=== PATIENT | male | born 1985 | race Caucasian/White ===

== ENCOUNTER 2016-02-24 10:38 | Inpatient (IN) | payer OTHER ==
[~2016-02-24] VITALS: Ht 170.2 cm; Wt 60.0 kg
[~2016-02-24 10:38] MED LIST: MEDROL4 MG PO; VALIUM2 MG PO
[2016-02-24 13:21] LABS: HEMATOCRIT 45.5 % (38.0-50.0); MCH 32.3 PG (29.0-34.0); MCHC 35.2 G/DL (30.0-36.0); MCV 91.9 FL (86-99); MEAN PLAT.VOLUME 9.5 uM^3 (9.0-12.4); PLATELET COUNT 483 K/uL (156-360); RBC DIS.WIDTH-CV 12.2 % (11.8-14.6); RBC DIS.WIDTH-SD 40.3 % (39-53); RED BLOOD COUNT 4.95 M/uL (4.00-5.50); WHITE BLOOD COUNT 29.7 K/uL (4.1-10.2)
[2016-02-24 13:24] LABS: CHLORIDE 101 mEq/L (99-109); POTASSIUM 3.3 mEq/L (3.7-5.4); SODIUM 138 mEq/L (136-147)
[2016-02-24 13:26] LABS: GLUCOSE 92 mg/dL (70-99)
[2016-02-24 13:29] LABS: ANION GAP 16 MEQ/L (2-14); SERUM ETHYL ALCOHOL < 10 mg/dL; TOTAL BILIRUBIN 0.3 mg/dL (0.0-1.0)
[2016-02-24 13:30] LABS: ALKALINE PHOSPHATASE 86 IU/L (3-129); GFR ESTIMATE (CALCULATED) > 59 mL/min/
[2016-02-24 13:30] LABS: ADD MIUA? YES; BILIRUBIN NEGATIVE; BLOOD TRACE; COLOR YELLOW ((YELLOW)); GLUCOSE (STRIP) 500; KETONES NEGATIVE; LEUKOCYTES NEGATIVE; NITRITE NEGATIVE; PROTEIN (STRIP) 100; SPECIFIC GRAVITY 1.023 (1.000-1.030)
[2016-02-24 13:31] LABS: UREA NITROGEN (BUN) 18 mg/dL (9-23)
[2016-02-24 13:32] LABS: EOSINOPHIL (%) 0.1 % (0-5); IMMATURE GRANULOCYTE (%) 0.6 % (0.0-0.7); IMMATURE GRANULOCYTE COUNT 1.7 K/uL; LYMPHOCYTE COUNT 1.4 K/uL (1.0-2.8); MONOCYTE (%) 5.3 % (3-12); MONOCYTE COUNT 1.6 K/uL (0-0.8); NEUTROPHIL (%) 89.1 % (45-76)
[2016-02-24 13:37] LABS: AMPHETAMINE NEGATIVE (500 ng/mL); BARBITURATES NEGATIVE (200 ng/mL); BENZODIAZEPINES PRESUMPTIVE POSITIVE (150 ng/mL); COCAINE NEGATIVE (150 ng/mL); INTERNAL CONTROLS VALID? YES; METHADONE NEGATIVE (200 ng/mL); METHAMPHETAMINE NEGATIVE (500 ng/mL); OPIATES (MORPHINE) NEGATIVE (100 ng/mL); OXYCODONE NEGATIVE (100 ng/mL); PHENCYCLIDINE NEGATIVE (25 ng/mL); PROPOXYPHENE NEGATIVE (300 ng/mL); THC CANNABINOIDS PRESUMPTIVE POSITIVE (50 ng/mL); TRICYCLIC ANTIDEPRESSANTS NEGATIVE (300 ng/mL)
[2016-02-24 13:38] LABS: ADD MEDTOX COMMENT Y
[2016-02-24 14:21] LABS: BACTERIA 1+; CASTS PRESENT /LPF; CRYSTALS NONE SEEN; EPITHELIAL CELLS RARE; HYALINE CASTS 0-5 /LPF; MUCUS NONE SEEN; UCUL ADDED? NO
[2016-02-24 14:35] LABS: BENZODIAZEPINES, URINE SCREEN POSITIVE (200 ng/mL)
[2016-02-24 15:37] LABS: HEMATOLOGY COMMENT 1 SMEAR COMPATIBLE; USER ID SS
[2016-02-24 15:48] LABS: TROP-I INTERPRETATION NEGATIVE; TROPONIN-I 0.05 ng/mL (0.0-0.30)
[2016-02-24] MEDS ORDERED: TYLENOL WITH C1 EACH PO (15:56)
[2016-02-24] MEDS ORDERED: CYCLOBENZAPRINE5 MG PO (15:57)
[2016-02-24] MEDS ORDERED: IBUPROFEN800 MG PO (15:58)
[2016-02-24 16:16] LABS: Estimated Average Glucose 117 mg/dL (70-123); HEMOGLOBIN A1c (GLYCOHEMOGLOB) 5.7 % HGB (Below 5.7)
[2016-02-24 17:07] VITALS: BP 113/58
[2016-02-24 20:16] VITALS: BP 100/57
[2016-02-25] VITALS (7 sets, daily range): BP systolic 94–135; BP diastolic 52–87
[2016-02-25 07:50] LABS: HEMATOCRIT 36.6 % (38.0-50.0); MCH 32.1 PG (29.0-34.0); MCHC 34.2 G/DL (30.0-36.0); MCV 94.1 FL (86-99); MEAN PLAT.VOLUME 10.2 uM^3 (9.0-12.4); PLATELET COUNT 355 K/uL (156-360); RBC DIS.WIDTH-CV 12.6 % (11.8-14.6); RBC DIS.WIDTH-SD 43.1 % (39-53); RED BLOOD COUNT 3.89 M/uL (4.00-5.50); WHITE BLOOD COUNT 11.9 K/uL (4.1-10.2)
[2016-02-25 10:58] LABS: ANION GAP 6 MEQ/L (2-14); CHLORIDE 110 MEQ/L (99-109); GFR ESTIMATE (CALCULATED) > 59 mL/min/; GLUCOSE 85 mg/dL (70-99); SAMPLE HEMOLYSIS CHECK 0; SAMPLE ICTERIC CHECK 0; SAMPLE LIPEMIA CHECK 0; SODIUM 141 MEQ/L (136-147); UREA NITROGEN (BUN) 8 mg/dL (9-23)
[2016-02-25 10:59] LABS: POTASSIUM 4.4 MEQ/L (3.7-5.4)
[2016-02-26 04:23] VITALS: BP 138/85
[2016-02-26 07:37] VITALS: BP 113/65
[2016-02-26 08:29] LABS: HEMATOCRIT 38.3 % (38.0-50.0); MCH 31.9 PG (29.0-34.0); MCHC 34.2 G/DL (30.0-36.0); MCV 93.2 FL (86-99); MEAN PLAT.VOLUME 10.1 uM^3 (9.0-12.4); PLATELET COUNT 326 K/uL (156-360); RBC DIS.WIDTH-CV 12.5 % (11.8-14.6); RBC DIS.WIDTH-SD 42.2 % (39-53); RED BLOOD COUNT 4.11 M/uL (4.00-5.50); WHITE BLOOD COUNT 8.2 K/uL (4.1-10.2)
[2016-02-26 08:57] LABS: ANION GAP 5 MEQ/L (2-14); CHLORIDE 105 MEQ/L (99-109); GFR ESTIMATE (CALCULATED) > 59 mL/min/; GLUCOSE 104 mg/dL (70-99); POTASSIUM 3.8 MEQ/L (3.7-5.4); SAMPLE HEMOLYSIS CHECK 0; SAMPLE ICTERIC CHECK 0; SAMPLE LIPEMIA CHECK 0; SODIUM 140 MEQ/L (136-147); UREA NITROGEN (BUN) 6 mg/dL (9-23)
[2016-02-26] MEDS ORDERED: CEFDINIR300 MG PO (10:42)
== END 2016-02-26 12:55 | disposition home or self-care (01) | DRG 872 ==
LOC: EME → EDBD 10:38 → EME 10:38 → EDOF 14:47 → 5SOUTH 17:12
PROVIDERS: Emergency Medicine; Hospitalist; Internal Medicine; Nurse Practitioner Adult Health
DX: A41.9 Sepsis, unspecified organism (principal); N39.0 Urinary tract infection, site not specified; E87.2 Acidosis; T42.4X1A Poisoning by benzodiazepines, accidental (unintentional), initial encounter; R41.0 Disorientation, unspecified; T40.7X5A Adverse effect of cannabis (derivatives), initial encounter; E87.6 Hypokalemia; F12.10 Cannabis abuse, uncomplicated; F17.210 Nicotine dependence, cigarettes, uncomplicated
CPT/HCPCS: 71010; 80048; 80053; 81003; 83036; 83605; 84484; 84999; 85025; 85027; 87040; 93005; 99281; 99285; G0480; J0696; J1650; J3480; J7030; J7050; S0028